=== PATIENT | female | born 1955 | race Caucasian/White ===

== ENCOUNTER 2016-12-29 01:08 | Day surgery (SDC) | payer OTHER ==
[~2016-12-29] VITALS: Ht 165.1 cm; Wt 104.1 kg
[~2016-12-29 01:08] MED LIST: AMT25T PO; CA C1TAB77 PO; CALC3.8S NS; CHOL200047 PO; DEXL30CA3 PO; FLUC50TA5 PO; FLUT9.9S NS; LEVO50TA6 PO; MELA3TAB35 PO; MUPI22OI2 TOP; OXYC1TAB24 PO; PRAM1TAB5 PO; TOLT2TAB5 PO; TOPI-31 PO; TRAM50TA2 PO
[2016-12-29 10:33] VITALS: BP 124/83; PULSE 64; RESP 12; O2SAT 95
[2016-12-29] MEDS ORDERED: Atropine 1 mg/10 mL (Code) Syringe ONE (10:46)
--- NOTE | 2016-12-29 10:48 | NUR ---
JUANJO ADMIT 61 YR OLD FEMALE ADMITTED TO [facility] FOR TILT TABLE TODAY. ASSESSMENT COMPLETED, IV STARTED, AND CONSENT IS SIGNED.
[2016-12-29 11:06] VITALS: BP 120/71; PULSE 65; RESP 10; O2SAT 96
[2016-12-29 11:15] VITALS: BP 116/78; PULSE 73; RESP 11; O2SAT 96
--- NOTE | 2016-12-29 12:05 | NUR ---
DISCHARGE PT WAS TILTED FOR 40MIN PER ORDERS. NO CHANGES NOTED ON MONITOR AND PT CONTINUED IN SR WITH RATES 65-80. BP WAS ALSO STABLE. SEE PROCEDURAL FLOW SHEET FOR DETAILS AND RHYTHM STRIPS. DR IRAHETA HERE AND DISCUSSED PLAN OF CARE WITH PT. DISCHARGE INSTRUCTIONS INCLUDING F/U AND MEDICATIONS. SHE WAS DISCHARGED IN STABLE CONDITION AT 1200 WITH FRIEND.
--- NOTE | 2016-12-29 12:36 | OUT PROC ---
[address] [address] PROCEDURE NOTE PATIENT: BEST WONG : 1955 MR#: [id number] ADMIT: 12/29/2016 JOB ID: [id number] TILT TABLE TEST REPORT: DATE OF PROCEDURE: 12/29/2016 INDICATION FOR TILT TABLE TEST: Dizzy spell. Tilt table test is being planned to rule out vasovagal components. CONSENT: Informed consent was obtained from the patient after explaining benefits and the risks, which include, but not limited to, risk of significant bradycardia or tachycardia, blood pressure drop or asystole, etc. An informed consent was obtained. The patient verbalizes understanding. ORNAMENT STAPLER: Velvet Avitia MD PROCEDURE IN DETAIL: The patient underwent tilt table testing as per standard protocol. She was monitored constantly with blood pressure recording, EKG monitoring, and pulse oximetry monitoring. Her baseline blood pressure was 120/71, heart rate 64, oxygen saturation 96%. During tilt table testing, there was no significant blood pressure drop or bradycardia or asystole or tachycardia. Ending blood pressure was 125/78 and heart rate 83. Oxygen saturation remained in the range of 96%-97%. There was no syncope or dizziness; however patient felt weakness and back and leg pain. The patient tolerated the procedure. There was no immediate complication. CONCLUSION: Tilt table test is negative for vasovagal syncope or postural orthostatic tachycardia syndrome or orthostatic hypotension.
== END 2016-12-29 23:59 | disposition home or self-care (01) ==
LOC: SOUO 01:08 → EDSTATUS 13:33 → SOUO 23:59
PROVIDERS: ATTEND Internal Medicine Cardiovascular Disease
DX: R42 Dizziness and giddiness (principal); D50.9 Iron deficiency anemia, unspecified; G47.33 Obstructive sleep apnea (adult) (pediatric); E03.9 Hypothyroidism, unspecified; G25.81 Restless legs syndrome
CPT/HCPCS: 93660; G0463

== ENCOUNTER → 2017-01-24 | Day surgery (SDC) | payer OTHER ==
[~2017-01-24] MED LIST changes: +Lidocaine Topical 2% 30 mL Jelly ONE
== END | disposition home or self-care (01) ==
LOC: END 01:46
PROVIDERS: ATTEND Internal Medicine Gastroenterology
DX: K44.9 Diaphragmatic hernia without obstruction or gangrene (principal)